=== PATIENT | female | born 1980 | race Two or more races ===

== ENCOUNTER 2018-06-29 16:52 | Emergency (ER) | payer MEDICAID ==
[~2018-06-29] VITALS: Ht 157.5 cm; Wt 57.2 kg
[2018-06-29 17:28] VITALS: BP 119/80
[2018-06-29] MEDS ORDERED: Acetaminophen 500mg (ES) tab ORAL ONE (18:00)
--- NOTE | 2018-06-29 18:18 | Emergency Room Report ---
History of Present Illness General Chief Complaint: Abdominal Pain Source: Patient Present Illness HPI 38-year-old female patient presents ER complaining of intermittent suprapubic pain for the past 3 months. Reports pain is been present since she had her IUD removed. states part of the IUD broke off and is still in her, was told she would have a follow-up appointment but did not follow-up.. Denies radiation of pain symptoms. Reports normal bowel movement bladder movements. Denies dysuria , hematuria, vaginal discharge. Denies other acute symptoms. Denies fever, chest pain, shortness of breath, calf pain. denies Allergies: Coded Allergies: No Known Allergies (Unverified , 06/29/18) Patient History Past Medical History: see triage record Last Menstrual Period: 06/21/18 Reviewed Nursing Documentation: PMH: Agreed; PSxH: Agreed Nursing Documentation-PMH Past Medical History: No Stated History Review of Systems All Other Systems: negative except mentioned in HPI Physical Exam Vital Signs Date Time Temp Pulse Resp B/P (MAP) Pulse Ox O2 Delivery O2 Flow Rate FiO2 06/29/18 17:08 98.1 68 18 119/80 99 Room Air 98.1 Sp02 EP Interpretation: reviewed, normal General Appearance: well appearing, no apparent distress, alert, GCS 15, non- toxic Head: normocephalic, atraumatic Eyes: bilateral eye normal inspection, bilateral eye PERRL ENT: hearing grossly normal, normal pharynx, no angioedema, normal voice, uvula midline, moist mucus membranes Neck: full range of motion Respiratory: lungs clear, normal breath sounds, no rhonchi, no respiratory distress, no accessory muscle use, no wheezing, speaking full sentences Cardiovascular #1: regular rate, rhythm, no edema Gastrointestinal: non tender, soft, no mass, non-distended, no guarding, no rebound, other - negative Rovsing, negative Crooks Genitourinary: no CVA tenderness, deferred Musculoskeletal: back normal, digits/nails normal, gait/station normal, normal range of motion, non-tender Neurologic: alert, oriented x3, responsive, motor strength/tone normal, sensory intact Psychiatric: mood/affect normal Skin: no rash Medical Decision Making PA Attestation Dr. Dye is my supervising Physician whom patient management has been discussed with. Diagnostic Impression: Primary Impression: Suprapubic pain Additional Impression: Ovarian follicular cyst ER Course Pt. presents to the ED c/o suprapubic pain. Ddx considered but are not limited to cystitis, pyelonephritis, retained foreign body, torsion, fibroids. Vital signs: are WNL, pt. is afebrile ER COURSE: no abdominal tenderness to palpation, negative Rovsing, negative Crooks, no flank pain or tenderness. Does not require CT imaging at this time. Patient states IUD was metal, does not really call name of medication. UA negative, no nitrites or leukocyte esterase, low suspicion for UTI, does not require antibiotic treatment at this time. pelvic ultrasound read by the windows server support technician stating follicular cysts and possible hypo-echogenic structure. Sent to [facility], read as negative for retained foreign body by radiologist. Consult with radiologist, recommends pelvic x-ray to rule out radiopaque foreign body. Ordered xray, Pelvic x-ray negative for retained foreign body or acute disease per the preliminary reading. Discuss results with the patient. Provided patient with copy of US results. Instructed patient to followup with PCP and discuss results of report with patient, discuss need for further treatment and referral. provided with contact information for surgeon. Follow-up with primary care provider discuss referral to COURSE INSTRUCTOR. Discussed results. DISCHARGE: Rx for Tylenol for pain At this time pt is stable for d/c to home. Patient is resting comfortably, in no acute distress, nontoxic appearing, talking without difficulty. Patient to take medications as instructed Will provide with patient care instructions and any necessary prescriptions. Care plan and follow-up instructions provided. Patient instructed to follow-up with primary care provider in 3 - 5 days. Patient questions asked and answered. Patient reports understanding and agreement to treatment plan. ER precautions given. Patient instructed to return to ER immediately for any new or worsening of symptoms including but not limited to increasing SOB, persistent fever, chest pain, intractable vomiting. - Please note that this Emergency Department Report was dictated using [employer] care liaison technology software, occasionally this can lead to erroneous entry secondary to interpretation by the dictation equipment. Labs Test 06/29/18 19:17 Urine Color Pale yellow Urine Appearance Clear Urine pH 6.5 (4.5-8.0) Urine Specific [place] 1.010 (1.005-1.035) Urine Protein Negative (NEGATIVE) Urine Glucose (UA) Negative (NEGATIVE) Urine Ketones Negative (NEGATIVE) Urine Occult Blood Negative (NEGATIVE) Urine Nitrite Negative (NEGATIVE) Urine Bilirubin Negative (NEGATIVE) Urine Urobilinogen Normal MG/DL (0.0-1.0) Urine Leukocyte Esterase Negative (NEGATIVE) Other X-Ray Diagnostic Results Other X-Ray Diagnostic Results : X-Ray ordered: pelvic # of Views/Limited Vs Complete: 1 View Indication: Pain EP Interpretation: Yes PA Xray: Interpretation reviewed, by supervising MD, and agrees with findings. Interpretation: no dislocation, no soft tissue swelling, no fractures, other - No radiopaque foreign body Impression: No acute disease DALTON Scribeverardo Text Zac Caraballo PA-C CT/MRI/US Diagnostic Results CT/MRI/US Diagnostic Results : Imaging Test Ordered: Pelvic ultrasound Impression No sonographic findings to suggest ovarian torsion. No adnexal masses or pelvic free fluid. The endometrium is normal in caliber. The uterus is normal in size. Per US windows server support technician, ovarian follicular cysts Last Vital Signs Date Time Temp Pulse Resp B/P (MAP) Pulse Ox O2 Delivery O2 Flow Rate FiO2 06/29/18 17:28 98.1 84 18 119/80 99 Room Air 98.1 Disposition: HOME, SELF-CARE Condition: Stable Scripts Acetaminophen* (TYLENOL EXTRA STRENGTH*) 500 Mg Tablet 500 MG ORAL Q8H PRN for Prn Headache/Temp > 101, #30 TAB 0 Refills Prov: Reyes Caraballo 06/29/18 Patient Instructions: Ovarian Cyst, [id number]-[id number], Vaginal Foreign Body, Easy-to -Read Additional Instructions: Followup with primary care provider in 3 -5 days. Follow-up with COURSE INSTRUCTOR specialist. Take medications as directed. Patient questions asked and answered. ER precautions given, patient instructed to return to ER immediately for any new or worsening of symptoms. Reyes Caraballo Jun 29, 2018 18:18
[2018-06-29 19:34] LABS: APPEARANCE,URINE CLEAR; BILIRUBIN, URINE NEGATIVE (NEGATIVE); COLOR,URINE PALE YELLOW; GLUCOSE, URINE (UA) NEGATIVE (NEGATIVE); KETONES,URINE NEGATIVE (NEGATIVE); LEUKOCYTE ESTERASE ,URINE NEGATIVE (NEGATIVE); NITRITE,URINE NEGATIVE (NEGATIVE); PH,URINE 6.5 (4.5-8.0); PROTEIN,URINE NEGATIVE (NEGATIVE); UROBILINOGEN,URINE NORMAL MG/DL (0.0-1.0)
[2018-06-29] MEDS ORDERED: TYLENOL EXTRA500 MG ORAL (20:29)
[2018-06-29 20:38] VITALS: BP 119/80
--- NOTE | 2018-06-30 09:49 | Diagnostic Imaging Report ---
Indication: Pelvic pain, recent IUD removal Technique: Transabdominal and transvaginal images Comparison: none Findings: Uterus measures 9.7 cm length by 5.3 cm AP. The endometrium measures 11 mm thick. Slightly increased central echogenicity seen in the endometrium but no definite foreign body demonstrated. Somewhat bright echoes are seen in the endocervical canal with some associated hypoechoic areas. Multiple cervical nabothian cysts are demonstrated. Left ovary measures 2.2 cm in length. Right ovary measures 3.8 cm in length. No adnexal mass demonstrated no free cul-de-sac fluid demonstrated Impression: Somewhat bright endocervical echoes, of doubtful significance but retained foreign body cannot completely excludable. Otherwise unremarkable exam. Incidental finding of multiple cervical nabothian cysts
--- NOTE | 2018-06-30 10:49 | Diagnostic Imaging Report ---
Indication: Pelvic pain, suspected foreign body, status post incomplete IUD removal Technique: One view of the pelvis Comparison: none Findings: No radiopaque foreign body demonstrated. No acute fractures. No dislocations. The joint spaces are preserved Impression: Negative
== END 2018-06-29 20:38 | disposition home or self-care (01) ==
LOC: EMR 18:28
DX: R10.2 Pelvic and perineal pain (principal); N83.02 Follicular cyst of left ovary
CPT/HCPCS: 72170; 76830; 76856; 81003; 99284

== ENCOUNTER 2019-01-26 13:48 | Emergency (ER) | payer MEDICAID ==
[~2019-01-26] VITALS: Ht 157.5 cm; Wt 49.9 kg
[~2019-01-26 13:48] MED LIST: TYLENOL EXTRA500 MG ORAL
[2019-01-26 14:00] VITALS: BP 124/79
--- NOTE | 2019-01-26 14:29 | Emergency Room Report ---
History of Present Illness General Chief Complaint: Pain Source: Patient Present Illness HPI 38-year-old female patient presents the ER complaining of right eye pain and numbness times 2 days. Reports facial numbness and tingling during this time. Also complaining of ear fullness. Reports "feels like something is in my eye". Denies vision loss. Denies photophobia or phonophobia. Denies muscle deficits. Denies fever, chest pain, shortness of breath. Reports history of cold recently. States is not taking medications for relief of symptoms. Denies other aggravating or relieving factors. Denies wearing contact lenses. Reports nasal congestion during this time. Denies pain with eye movement. Denies taking medication for relief of symptoms. Allergies: Coded Allergies: No Known Allergies (Unverified , 06/29/18) Patient History Past Medical History: see triage record Reviewed Nursing Documentation: PMH: Agreed; PSxH: Agreed Nursing Documentation-PMH Past Medical History: No Stated History Review of Systems All Other Systems: negative except mentioned in HPI Physical Exam Vital Signs Date Time Temp Pulse Resp B/P (MAP) Pulse Ox O2 Delivery O2 Flow Rate FiO2 01/26/19 14:00 98.1 59 18 124/79 98 Room Air Sp02 EP Interpretation: reviewed, normal General Appearance: well appearing, no apparent distress, alert, GCS 15, non- toxic Head: normocephalic, atraumatic, other - Right-sided maxillary tenderness, no overlying erythema or edema Eyes: bilateral eye normal inspection, bilateral eye PERRL, bilateral eye EOMI , bilateral eye other - no fluorescein uptake ENT: hearing grossly normal, normal pharynx, no angioedema, normal voice, TMs + canals normal, uvula midline, moist mucus membranes, nasal congestion Neck: full range of motion, no meningismus, no bony tend Respiratory: lungs clear, normal breath sounds, no rhonchi, no respiratory distress, no accessory muscle use, no wheezing, speaking full sentences Cardiovascular #1: regular rate, rhythm, no edema Musculoskeletal: back normal, digits/nails normal, gait/station normal, normal range of motion, non-tender Neurologic: alert, oriented x3, responsive, floor molder III-XII nml as tested, motor strength/tone normal, sensory intact, cerebellar normal, normal gait, speech normal, other - no facial droop Psychiatric: mood/affect normal Skin: no rash Medical Decision Making PA Attestation Dr. Dye is my supervising Physician whom patient management has been discussed with. Diagnostic Impression: Primary Impression: Rhinosinusitis ER Course Pt. presents to the ED c/o face pain and numbness, foreign body sensation in eye , earache times 2 days. Ddx considered but are not limited to sinusitis, palsy, trigeminal neuralgia, otitis media, otitis externa, viral URI, glaucoma, conjunctivitis, corneal abrasion. Cranial nerves intact as tested, no focal neuro deficits, does not require CT head at this time. No reduction in VA, no cilliary flush, no photophobia, no FB sensation, no corneal opacity, low suspicion for keratitis, iritis. No LEE, no vomiting, no fixed pupil, no reduction of VA, no ciliary flush, low suspicion for angle closure glaucoma. Patient has no signs of surrounding cellulitis, no pain with eye movement, does not require imaging at this time. Vital signs: are WNL, pt. is afebrile ER COURSE: Physical exam shows tenderness to palpation over maxillary sinus, consistent with sinusitis. Nasal congestion also noted. Likely rhinosinusitis. No conjunctival injection, no crusting or drainage reported, low suspicion for bacterial conjunctivitis. Fluorescein stain shows no uptake, negative Kimberley sign, no corneal rust ring, no foreign body, no dendritic lesions. Tonometer pen shows average intraocular pressure of 17 mmHg, low suspicion for glaucoma. Patient with treatment for sinusitis. Follow-up with ENT specialist. ER precautions given. DISCHARGE: At this time pt is stable for d/c to home. Patient is resting comfortably, in no acute distress, nontoxic appearing, talking without difficulty. Patient to take medications as instructed Will provide with patient care instructions and any necessary prescriptions. Care plan and follow-up instructions provided. Patient instructed to follow-up with primary care provider in 3 - 5 days. Patient questions asked and answered. Patient reports understanding and agreement to treatment plan. ER precautions given. Patient instructed to return to ER immediately for any new or worsening of symptoms including but not limited to increasing SOB, persistent fever, chest pain, intractable vomiting. - Please note that this Emergency Department Report was dictated using [employer] professional technology software, occasionally this can lead to erroneous entry secondary to interpretation by the dictation equipment. Last Vital Signs Date Time Temp Pulse Resp B/P (MAP) Pulse Ox O2 Delivery O2 Flow Rate FiO2 01/26/19 14:00 98.1 59 18 124/79 98 Room Air Disposition: HOME, SELF-CARE Condition: Stable Scripts Acetaminophen* (TYLENOL EXTRA STRENGTH*) 500 Mg Tablet 500 MG ORAL Q8H PRN for Prn Headache/Temp > 101, #30 TAB 0 Refills Prov: Reyes Caraballo 01/26/19 Naphazoline Hcl/Phenir Mal (NAPHCON-A EYE DROPS) 15 Ml Drops 15 ML OP BID, #15 ML Prov: Reyes Caraballo 01/26/19 Loratadine/Pseudoephedrine (CLARITIN-D 12 HOUR TABLET) 1 Each Tab.er.12h 1 TAB ORAL EVERY 12 HOURS, #24 TAB Prov: Reyes Caraballo 01/26/19 Fluticasone Propionate* (FLUTICASONE PROPIONATE*) 16 Gm [place].susp 1 SPRAY NASAL TWICE A DAY, #16 GM Prov: Reyes Caraballo 01/26/19 Patient Instructions: Allergies, [id number], Sinusitis, Adult, [id number] Additional Instructions: Followup with primary care provider in 3 -5 days. Follow-up with ENT specialist. Take medications as directed. Patient questions asked and answered. ER precautions given, patient instructed to return to ER immediately for any new or worsening of symptoms. Reyes Caraballo Jan 26, 2019 14:29
[2019-01-26] MEDS ORDERED: Fluorescein Strips RIGHT EYE ONE (14:30)
[2019-01-26] MEDS ORDERED: Tetracaine 0.5% Opth 4ml Soln RIGHT EYE ONE (14:30)
[2019-01-26] MEDS ORDERED: NAPHCON-A EYE D15 ML OP (14:55)
[2019-01-26] MEDS ORDERED: CLARITIN-D 121 EAC1 ORAL (14:55)
[2019-01-26] MEDS ORDERED: FLUTICASONE PRO16 G1 NASAL (14:55)
[2019-01-26] MEDS ORDERED: TYLENOL EXTRA500 MG ORAL (14:55)
[2019-01-26 15:06] VITALS: BP 124/79
--- NOTE | 2019-01-26 15:07 | NUR ---
ER DISCHARGE NOTE: Patient is cleared to be discharged per ERMD with friend, pt is aox4, on room air, with stable vital signs. pt was given dc and prescription instructions, pt was able to verbalize understanding, pt id band removed. pt is able to ambulate with steady gait. pt took all belongings.
== END 2019-01-26 15:10 | disposition home or self-care (01) ==
LOC: EMR 15:00
DX: J32.9 Chronic sinusitis, unspecified (principal)
CPT/HCPCS: 99283

== ENCOUNTER 2019-07-31 14:33 | Emergency (ER) | payer MEDICAID ==
[~2019-07-31] VITALS: Ht 152.4 cm; Wt 62.1 kg
[~2019-07-31 14:33] MED LIST changes: +CLARITIN-D 121 EAC1 ORAL; +FLUTICASONE PRO16 G1 NASAL; +NAPHCON-A EYE D15 ML OP
[2019-07-31] MEDS ORDERED: NKM (14:53)
--- NOTE | 2019-07-31 14:55 | NUR ---
ED Nurse Note: PT WALKED IN TO ER TODAY FROM HOME. AOX4. PT C/O LOWER BACK PAIN, 8/10 RADIATING DOWN LEG X 1 WEEK AGO. PT DENIES ANY RECENT INJURY OR TRAUMA. GAIT STEADY IN ER. PT DENIES NUMBNESS OR TINGLING. FULL ROM OF EXTREMITY AND DIGITS.
[2019-07-31 14:57] VITALS: BP 108/76
[2019-07-31] MEDS ORDERED: Ketorolac 30mg Inj IM ONE (15:15)
--- NOTE | 2019-07-31 15:21 | Emergency Room Report ---
History of Present Illness General Chief Complaint: Back Pain-No Injury Source: Patient Present Illness HPI 39-year-old female presents to the emergency department complaining of 8 out of 10 severity pain to the left lower back with radiation down the left leg. Patient reports intermittent feeling of numbness/tingling along with shooting electrical sensation. Patient denies trauma or fall she denies midline neck or back pain. Patient denies night sweats, history of recent spinal procedure or history of cancer. Patient reports she is able to ambulate certain flex positions exacerbate her symptoms. Denies saddle anesthesia. No other aggravating or relieving factors. Allergies: Coded Allergies: No Known Allergies (Unverified , 06/29/18) Patient History Past Medical History: see triage record Past Surgical History: none Pertinent Family History: none Last Menstrual Period: 5days ago Now: No Reviewed Nursing Documentation: PMH: Agreed; PSxH: Agreed Nursing Documentation-PMH Past Medical History: No Stated History Review of Systems All Other Systems: negative except mentioned in HPI Physical Exam Vital Signs Date Time Temp Pulse Resp B/P (MAP) Pulse Ox O2 Delivery O2 Flow Rate FiO2 07/31/19 14:49 97.9 67 20 104/74 (84) 98 Room Air Sp02 EP Interpretation: reviewed, normal General Appearance: no apparent distress, alert, GCS 15, non-toxic Head: normocephalic, atraumatic Eyes: bilateral eye normal inspection, bilateral eye PERRL ENT: hearing grossly normal, normal voice Neck: full range of motion Respiratory: lungs clear, normal breath sounds, speaking full sentences Cardiovascular #1: regular rate, rhythm Genitourinary: normal inspection, no CVA tenderness Musculoskeletal: back normal, gait/station normal, normal range of motion, non- tender, tender - Left sided lumbar Paraspinal and upper gluteal TTP, FROM with exacerbation of pain temporarily in certain flexed positions, no LE weakness, pt. is NVI, no erythema, midline bony ttp, step-offs or obvious deformity. Neurologic: alert, oriented x3, responsive, motor strength/tone normal, sensory intact, speech normal, grossly normal Psychiatric: judgement/insight normal Medical Decision Making PA Attestation Dr. Dye is my supervising Physician whom patient management has been discussed with. Diagnostic Impression: Primary Impression: Back pain with left-sided sciatica ER Course 39-year-old female presents to the emergency department complaining of 8 out of 10 severity pain to the left lower back with radiation down the left leg. Patient reports intermittent feeling of numbness/tingling along with shooting electrical sensation. Patient denies trauma or fall she denies midline neck or back pain. Patient denies night sweats, history of recent spinal procedure or history of cancer. Patient reports she is able to ambulate certain flex positions exacerbate her symptoms. Denies saddle anesthesia. No other aggravating or relieving factors. Ddx considered but are not limited to Fracture, dislocation, contusion, epidural abscess, Sprain/Strain/Spasm Vital signs: are WNL, pt. is afebrile H&PE are most consistent with sciatica of the left side, no evidence of cauda equina or focal neurological deficit. No suspicion for abscess/infection ORDERS: X-ray not required at this time, no spinous process tenderness ED INTERVENTIONS: - IM Toradol 30mg. -I do not identify an emergent condition at this time. With current presentation , pt. is stable for close outpatient follow up and conservative treatment. D/ w pt. to return promptly to ED with worsening or new symptoms.- Pt. verbalizes' understanding and agreement with proposed treatment plan. DISCHARGE: At this time pt. is stable for d/c to home. Will provide printed patient care instructions, and any necessary prescriptions. Care plan and follow up instructions have been discussed with the patient prior to discharge. Last Vital Signs Date Time Temp Pulse Resp B/P (MAP) Pulse Ox O2 Delivery O2 Flow Rate FiO2 07/31/19 14:57 98.0 68 18 108/76 100 Room Air Disposition: HOME, SELF-CARE Condition: Stable Patient Instructions: Sciatica, Back Pain, Adult Additional Instructions: Take medications as directed. !! Do not drink alcohol, drive, or operate heavy machinery while taking Robaxin ( Muscle Relaxers) as this may cause drowsiness. Follow up with a Primary Care Provider in 3-5 days, even if your symptoms have resolved. --Please review list of primary care clinics, if you do not already have a primary care provider Return sooner to ED if new symptoms occur, or current symptoms become worse. - Please note that this Emergency Department Report was dictated using [employer]washing machine operator technology software, occasionally this can lead to erroneous entry secondary to interpretation by the dictation equipment. Bianca Cosby 10, 2019 15:21
[2019-07-31] MEDS ORDERED: IBUPROFEN600 MG ORAL (15:22)
[2019-07-31] MEDS ORDERED: ROBAXIN-750750 MG PO (15:22)
--- NOTE | 2019-07-31 15:23 | NUR ---
ED Nurse Note: PT SITTING PEACEFULLY IN BED IN NAD. AOX4. PRESCRIPTION AND DISCHARGE PAPERWORK EXPLAINED TO PT. PT VERBALIZES UNDERSTANDING AND ALL QUESTIONS ANSWERED. PRESCRIPTION AND DISCHARGE PAPERWORK GIVEN TO PT AND ID OBI REMOVED. PT WALKED OUT OF ER WITH STEADY GAIT AND ALL BELONGINGS.
[2019-07-31 15:24] VITALS: BP 112/78
== END 2019-07-31 15:23 | disposition home or self-care (01) ==
LOC: EMR 15:18
DX: M54.42 Lumbago with sciatica, left side (principal)
CPT/HCPCS: 96372; J1885; Z7502; 99283

== ENCOUNTER 2020-06-11 11:25 | Emergency (ER) | payer MEDICAID ==
[~2020-06-11] VITALS: Ht 162.6 cm; Wt 63.5 kg
[~2020-06-11 11:25] MED LIST changes: +IBUPROFEN600 MG ORAL; +NKM; +ROBAXIN-750750 MG PO
[2020-06-11] MEDS ORDERED: Ketorolac 30mg Inj IV ONE (12:00)
[2020-06-11 12:12] VITALS: BP 117/74
--- NOTE | 2020-06-11 12:16 | NUR ---
ED Nurse Note:pt. came from home with c/o headache no fever or SOB reported, pt. had CT head done, urine sent to LABS
[2020-06-11 12:30] LABS: APPEARANCE,URINE CLEAR; BILIRUBIN, URINE NEGATIVE (NEGATIVE); COLOR,URINE PALE YELLOW; GLUCOSE, URINE (UA) NEGATIVE (NEGATIVE); KETONES,URINE NEGATIVE (NEGATIVE); LEUKOCYTE ESTERASE ,URINE NEGATIVE (NEGATIVE); NITRITE,URINE NEGATIVE (NEGATIVE); PH,URINE 6 (4.5-8.0); PROTEIN,URINE NEGATIVE (NEGATIVE); UROBILINOGEN,URINE NORMAL MG/DL (0.0-1.0)
--- NOTE | 2020-06-11 12:32 | Diagnostic Imaging Report ---
EXAM: CT CT Head no Contrast INDICATION: Frontal headache x3 days. TECHNIQUE: Axial images of the brain were obtained with subsequent sagittal and coronal reformats. All CT scans at this facility are performed using dose modulation techniques as appropriate to a performed exam including the following: automated exposure control with adjustment of the mA and/or kV according to patient size. COMPARISON STUDY: None. RADIATION DOSE: CTDIvol: 53.4 mGy DLP: 992.1 mGy-cm Dose information generated by the CT scanner is available in PACS. FINDINGS: There is normal symmetry and normal blevins-white differentiation. There is no acute large territory cortical infarct, hemorrhage, mass effect or shift. Ventricles and cisterns as well as brainstem and posterior fossa appear unremarkable. The sellar region is normal. Sinuses, mastoid air cells and bony calvarium appear intact. IMPRESSION: NO ACUTE INTRACRANIAL ABNORMALITY.
[2020-06-11] MEDS ORDERED: IBUPROFEN600 M1 ORAL (12:35)
[2020-06-11] MEDS ORDERED: NORCO 5-325 TA1 EAC1 ORAL (12:35)
[2020-06-11] MEDS ORDERED: MECLIZINE HCL25 MG ORAL (12:35)
[2020-06-11 12:50] VITALS: BP 117/74
--- NOTE | 2020-06-11 12:50 | NUR ---
ED Nurse Note: Pt cleared by health care Provider for discharge. DC instructions/prescription was given and explained to pt and verbalized understanding of teachings. All medical deviecs such as ID band removed. Pt is AAO x4, ambulatory and left with all personal belongings.
--- NOTE | 2020-06-11 13:41 | Emergency Room Report ---
History of Present Illness General Chief Complaint: Headache Source: Patient Present Illness HPI Patient presents emergency department today complaining of a headache. Patient has been under a lot of stress. States that her headache started a couple days ago. Gradual onset no associated neck stiffness fever nausea vomiting. Patient does have some dizziness. Denies any visual changes. Denies any auditory changes. Denies any vertigo. No other complaints are noted. Symptoms are moderate to severe. No other modifying factors. No other associated signs and symptoms. No other complaints were noted. Allergies: Coded Allergies: No Known Allergies (Unverified , 06/29/18) COVID-19 Screening Contact w/high risk pt: No Experienced COVID-19 symptoms?: Yes COVID-19 Testing performed TEXTILE EXAMINER: No Patient History Past Medical History: none Past Surgical History: none Pertinent Family History: none Social History: Denies: smoking, alcohol use, drug use Reviewed Nursing Documentation: PMH: Agreed; PSxH: Agreed Nursing Documentation-PMH Past Medical History: No Stated History Review of Systems All Other Systems: negative except mentioned in HPI Physical Exam Vital Signs Date Time Temp Pulse Resp B/P (MAP) Pulse Ox O2 Delivery O2 Flow Rate FiO2 06/11/20 11:36 97.9 59 15 117/74 (88) 97 Room Air Sp02 EP Interpretation: reviewed, normal General Appearance: normal inspection, well appearing, no apparent distress, alert Head: atraumatic Eyes: bilateral eye normal inspection ENT: normal ENT inspection, hearing grossly normal, normal voice Neck: normal inspection, full range of motion, supple, no bony tend Respiratory: normal inspection, lungs clear, normal breath sounds, no respiratory distress, no retraction, no wheezing Cardiovascular #1: regular rate, rhythm, no edema Gastrointestinal: normal inspection, normal bowel sounds, non tender, soft, no guarding, no hernia Genitourinary: no CVA tenderness Musculoskeletal: normal inspection, back normal, normal range of motion Neurologic: alert, responsive, speech normal, normal inspection Psychiatric: normal inspection, judgement/insight normal, mood/affect normal Skin: no rash Medical Decision Making Diagnostic Impression: Primary Impression: Dizziness Additional Impression: Headache ER Course Patient presents emergency department today complaint of a headache. Patient also complains of dizziness. Differential considerations include migraine headache, intracranial injury, CVA just name a few. Patient exam is consistent with likely a headache that is nonspecific. Given patient presentation and new onset I felt a CT scan was indicated. CT scan was noted to be negative. Given that is atypical presentation of a headache that is why CT scan was done as patient is never had a work-up or severe headache like this before. Given CT head is negative patient improved after pain medications felt the patient be discharged. Patient is advised to follow up with primary doctor in 2-3 days and return the emergency room for any worsening symptoms and as needed. Labs Test 06/11/20 12:00 Urine Color Pale yellow Urine Appearance Clear Urine pH 6 (4.5-8.0) Urine Specific [place] 1.015 (1.005-1.035) Urine Protein Negative (NEGATIVE) Urine Glucose (UA) Negative (NEGATIVE) Urine Ketones Negative (NEGATIVE) Urine Blood Negative (NEGATIVE) Urine Nitrite Negative (NEGATIVE) Urine Bilirubin Negative (NEGATIVE) Urine Urobilinogen Normal MG/DL (0.0-1.0) Urine Leukocyte Esterase Negative (NEGATIVE) Urine HCG, Qualitative Negative (NEGATIVE) CT/MRI/US Diagnostic Results CT/MRI/US Diagnostic Results : Imaging Test Ordered: CT head: Negative Last Vital Signs Date Time Temp Pulse Resp B/P (MAP) Pulse Ox O2 Delivery O2 Flow Rate FiO2 06/11/20 13:21 97.9 06/11/20 12:50 72 15 117/74 97 Room Air Status: improved Disposition: HOME, SELF-CARE Condition: Stable Scripts Hydrocodone Bit/Acetaminophen 5-325* (NORCO 5-325 TABLET*) 1 Each Tablet 1 TAB ORAL Q4H PRN for For Pain, #10 TAB Prov: Jonn Armstrong MD 06/11/20 Meclizine Hcl* (MECLIZINE*) 25 Mg Tablet 25 MG ORAL THREE TIMES A DAY for dizziness, #14 TAB Prov: Jonn Armstrong MD 06/11/20 Ibuprofen* (MOTRIN*) 600 Mg Tablet 600 MG ORAL Q6H PRN for FOR PAIN, #20 TAB 0 Refills Prov: Jonn Armstrong MD 06/11/20 Referrals: NOT CHOSEN IPA/,REFERRING (PCP) Patient Instructions: Migraine Headache Jonn Armstrong MD Jun 11, 2020 13:41
== END 2020-06-11 12:50 | disposition home or self-care (01) ==
LOC: EMR 12:50
DX: R51 Headache (principal); R42 Dizziness and giddiness
CPT/HCPCS: 70450; 81003; 81025; 96374; J1885; J2405; Z7502; 99284; J7030